=== PATIENT | female | born 1985 | race Caucasian/White ===

== ENCOUNTER 2020-01-11 09:58 | Emergency (ER) | payer MEDICAID, SELFPAY ==
--- NOTE | 2020-01-11 10:02 | ED.GENADULT ---
HPI - General Adult General Chief complaint: Abdominal Pain Stated complaint: heartburn Time Seen by Provider: 01/11/20 10:13 Source: patient Mode of arrival: ambulatory Limitations: no limitations History of Present Illness HPI narrative: 34-year-old female patient presents to the [facility] with complaints of a burning chest pain and abdominal pain for the past 4 to 5 days. Patient states that she has had heartburn before when she was . Patient states she has tried taking [id number] Nexium as well as Tums. Patient states after she started taking the time she did develop diarrhea. Patient states she is also on clindamycin at this time for a spider bite. Denies any shortness of breath. Patient states she only has the burning chest pain that comes from the throat down to the chest and into the middle of the ribs after she eats or when she lays down. Patient states this also occurs at times when she drinks water. Denies any vomiting. Patient states that she does feel nausea at time. Patient states she also feels like her stomach is full and that she cannot eat. Patient states she has not really eaten anything for the last day and a half. Patient denies stating she has an IUD in place at this time. Patient denies breast-feeding at this time. Related Data Home Medications Medication Instructions Recorded Confirmed No Home Medications 01/11/20 01/11/20 Allergies Allergy/AdvReac Type Severity Reaction Status Date / Time codeine Allergy Unknown Verified 04/20/18 11:05 Review of Systems Review of Systems: Narrative: CONSTITUTIONAL: Denies fever, chills, or sweats. EYES: Denies visual changes, redness, or discharge. ENT: Denies rhinorrhea, congestion, sore throat, or otalgia. CARDIOVASCULAR: Positive burning chest pain, denies palpitations, or edema. RESPIRATORY: Denies cough or dyspnea. GASTROINTESTINAL: Positive upper abdominal pain, nausea, denies vomiting, denies diarrhea. GENITOURINARY: Denies dysuria or hematuria. SKIN: Denies rash or itching. MUSCULOSKELETAL: Denies back pain, joint pain, or myalgia. NEUROLOGIC: Denies headache, numbness, or weakness. PSYCHIATRIC: Denies anxiety or depression. PMFSH Comments At the time of my signature I agree with nursing past medical history, surgical, social, and family history. There is no relevant family history pertinent to the presenting complaint. Exam Narrative: Exam Narrative: GENERAL: Well-appearing, well-nourished, and in no acute distress. HEAD: Normocephalic, atraumatic. EYES: PERRLA and EOMI. ENT: Nares clear, no rhinorrhea or epistaxis. Mucous membranes moist. NECK: Supple. No lymphadenopathy CHEST: Clear to auscultation. No respiratory distress. Patient able talk in clear complete sentences. HEART: Regular rate and rhythm. No murmur heard. Normal peripheral pulses. ABDOMEN: Soft, flat, nondistended. No guarding, rebound tenderness, or rigid. Slight tenderness noted on palpation to the right upper quadrant and epigastric area. No pulsatilla masses. Bowel sounds present in all four quadrants. No organomegaly. Negative Kan?s sign. No periumbicial tenderness. No Supra public tenderness or distension. Good femoral pulses bilaterally. No hernia noted. No scars or surface trauma. EXTREMITIES: Normal range of motion. No edema. SKIN: Warm, dry, no rash. NEURO: No focal deficits. Alert and oriented x3. Course Vital Signs Vital signs: Vital Signs Temperature 37.3 C 01/11/20 10:05 Pulse Rate 98 01/11/20 10:05 Respiratory Rate 18 01/11/20 10:05 Blood Pressure 134/90 01/11/20 10:05 Pulse Oximetry 100 01/11/20 10:05 Temperature 37.3 C 01/11/20 10:05 Pulse Rate 98 01/11/20 10:05 Respiratory Rate 18 01/11/20 10:05 Blood Pressure 134/90 01/11/20 10:05 Pulse Oximetry 100 01/11/20 10:05 Vital signs reviewed. The patient has been informed that they may have pre-hypertension or Hypertension based on a BP readi
[2020-01-11 10:05] VITALS: BP 134/90; PULSE 98; RESP 18; TEMP 37.3; O2SAT 100
== END 2020-01-11 10:25 | disposition home or self-care (01) ==
PROVIDERS: Emergency Provider Nurse Practitioner Family
DX: K21.9 Gastro-esophageal reflux disease without esophagitis (principal); Z97.5 Presence of (intrauterine) contraceptive device; R03.0 Elevated blood-pressure reading, without diagnosis of hypertension
CPT/HCPCS: 99213; G0463

== ENCOUNTER 2023-06-13 13:02 | Emergency (ER) | payer OTHER, SELFPAY ==
--- NOTE | ~2023-06-13 | XR_ITS ---
EXAMINATION: XR hand RT min 3V DATE: 06/13/2023 14:04 INDICATION: Right hand trauma with dog chain wrapped around the hand. TECHNIQUE: Posteroanterior, oblique and lateral views of the right hand were obtained. COMPARISON: None. FINDINGS: Alignment is normal. No fracture. Joint spaces are normal. Bone island at the distal radius. Soft tis sues are unremarkable. IMPRESSION: 1. Distal radial bone island. Otherwise normal right hand radiograph.. Reviewed, dictated and finalized at location A.
[2023-06-13 13:10] VITALS: BP 149/91; PULSE 112; RESP 16; TEMP 36.9; O2SAT 100
--- NOTE | 2023-06-13 13:22 | ED.UPPEXIN ---
HPI - Extremity Injury (Upper) General Chief Complaint: Extremity Injury, Upper Stated Complaint: Right Hand Injury History of Present Illness HPI narrative: PATIENT PRESENTS WITH RIGHT THUMB PAIN. PATIENT WAS WALKING HER DOG AND HE TOOK OFF AFTER CAT CAUSING THE LEASH TO WRAP TIGHT AROUND HER RIGHT THUMB. PAIN TO THUMB NO DEFORMITY NOTED Related Data Home Medications Medication Instructions Recorded Confirmed No Home Medications 01/11/20 06/13/23 Allergies Allergy/AdvReac Type Severity Reaction Status Date / Time codeine Allergy Unknown Abdominal Verified 06/13/23 13:18 Pain amoxicillin Allergy Itching Verified 06/13/23 13:18 Review of Systems Review of Systems: CONSTITUTIONAL: DENIES FEVER, CHILLS, OR SWEATS. EYES: DENIES VISUAL CHANGES, REDNESS, OR DISCHARGE. ENT: DENIES RHINORRHEA, CONGESTION, SORE THROAT, OR OTALGIA. CARDIOVASCULAR: DENIES CHEST PAIN, PALPITATIONS, OR EDEMA. RESPIRATORY: DENIES COUGH OR DYSPNEA. GASTROINTESTINAL: DENIES ABDOMINAL PAIN, NAUSEA, VOMITING, OR DIARRHEA. GENITOURINARY: DENIES DYSURIA OR HEMATURIA. SKIN: DENIES RASH OR ITCHING. MUSCULOSKELETAL: DENIES BACK PAIN, JOINT PAIN, OR MYALGIA. NEUROLOGIC: DENIES HEADACHE, NUMBNESS, OR WEAKNESS. PSYCHIATRIC: DENIES ANXIETY OR DEPRESSION. PMFSH Comments AT TIME OF SIGNATURE, AGREE WITH NURSING PAST MEDICAL, SURGICAL, SOCIAL AND FAMILY HISTORY. THERE IS NO RELEVANT FAMILY HISTORY PERTINENT TO THE PRESENTING COMPLAINT Exam Narrative: GENERAL: WELL-APPEARING, WELL-NOURISHED, AND IN NO ACUTE DISTRESS. HEAD: NORMOCEPHALIC, ATRAUMATIC. EYES: PERRLA AND EOMI. ENT: NARES CLEAR, NO RHINORRHEA OR EPISTAXIS. MUCOUS MEMBRANES MOIST. NECK: SUPPLE. CHEST: CLEAR TO AUSCULTATION. NO RESPIRATORY DISTRESS. HEART: REGULAR RATE AND RHYTHM. NO MURMUR HEARD. NORMAL PERIPHERAL PULSES. ABDOMEN: SOFT, NONTENDER, NONDISTENDED, NORMAL ACTIVE BOWEL SOUNDS. EXTREMITIES: NORMAL RANGE OF MOTION. NO EDEMA. HAND EXAM - SKIN INTACT, NO LACERATION, NO SWELLING, NO ERYTHEMA, NORMAL DIGIT CASCADE WITH FLEXION OF FINGERS, MEDIAN NERVE, ULNAR NERVE, RADIAL NERVE IS INTACT. NORMAL SENSATION OF EACH SIDE OF EACH FINGER, CAN PERFORM `OK? SIGN, `CROSS OVER FINGER TEST OF INDEX AND MIDDLE FINGERS? AND `THUMBS UP? SIGN, NORMAL THUMB OPPOSITION, NO SCISSORING. GOOD CAPILLARY REFILL AND RADIAL PULSE. NORMAL FLEXION AND EXTENSION OF FINGERS AND WRIST. NORMAL SUPINATION AT WRIST. NORMAL FOREARM AND ELBOW EXAM. SWELLING TO THE ASE OF RIGHT THUMB SKIN: WARM, DRY, NO RASH. NEURO: NO FOCAL DEFICITS. ALERT AND ORIENTED X3. ERINN COMA SCALE EYE OPENING: SPONTANEOUS 4 ERINN COMA SCALE MOTOR: OBEYS COMMANDS 6 ERINN COMA SCALE VERBAL: ORIENTED 5 ERINN COMA SCALE TOTAL 15 Course Course Level of Care: Express Care Visit Discharge Plan Discharge Clinical Impression: Finger sprain Patient Disposition: Home, Self-Care Condition: Stable Instructions: Finger Sprain (ED) Additional Instructions: ICE TO THE AREA 20-30 MINUTES 4-6 TIMES A DAY ELEVATE ABOVE HEART ELASTIC WRAP OR ORTHOPEDIC SPLINT DIRECTED FOR COMFORT FOR THE NEXT 5-7 DAYS TYLENOL FOR LESSER PAIN IBUPROFEN REGULARLY FOR THE NEXT 2-3 DAYS FOR THE INFLAMMATION FOLLOW-UP WITH PCP IF FURTHER PROBLEMS OR CONCERNS -IF YOU HAVE ANY WORSENING OF SYMPTOMS OR ANY OTHER CONCERNS PLEASE GO TO THE ED IMMEDIATELY. Prescriptions: No Action No Home Medications Follow-up/Referrals: PHYSICIAN,DIRECTOR OF CLINICAL TRIALS [Primary Care Provider] - Stand Alone Forms: Work/School Release IP
== END 2023-06-13 14:28 | disposition home or self-care (01) ==
PROVIDERS: Emergency Provider Nurse Practitioner Family
DX: S63.601A Unspecified sprain of right thumb, initial encounter (principal); W23.0XXA Caught, crushed, jammed, or pinched between moving objects, initial encounter; Y93.K1 Activity, walking an animal
CPT/HCPCS: 73130; 99203; G0463